=== PATIENT | male | born 1985 | race Caucasian/White ===

== ENCOUNTER 2023-09-02 13:34 | Outpatient (REF) | payer OTHER, SELFPAY ==
[2023-09-02 14:08] LABS: MANUAL DIFF FLAG NO
[2023-09-02 14:17] LABS: Basophils Percent Auto 0.5 % (0-2); Eosinophils Absolute Auto 0.3 X10*3/uL (0.0-0.4); Eosinophils Percent Auto 3.5 % (0-4); Hematocrit 47.8 % (42.0-52.0); Hemoglobin 16.1 g/dl (14.0-18.0); Imm Gran Abs Auto 0.04 X10*3/uL (0.00-0.03); Imm Gran Pct Auto 0.5 % (0.0-0.4); Lymphocytes Absolute Auto 1.8 X10*3/uL (1.2-4.9); Lymphocytes Percent Auto 20.2 % (20-40); Mean Corpuscular HGB Conc 33.7 g/dl (31.0-36.0); Mean Corpuscular Hemoglobin 29.5 pg (27.0-33.0); Mean Corpuscular Volume 87.5 fL (80.0-98.0); Mean Platelet Volume 9.6 fL (9.4-12.4); Monocytes Absolute Auto 0.6 X10*3/uL (0.1-1.2); Monocytes Percent Auto 6.3 % (2-11); Neutrophils Absolute Auto 6.1 x10*3/uL (2.0-8.3); Platelet Count 208 X10*3/uL (160-400); Red Blood Count 5.46 X10*6/uL (4.60-5.80); Red Cell Distribution Width 12.2 % (11.0-16.0); White Blood Count 8.8 X10*3/uL (4.8-10.8)
[2023-09-02 15:00] LABS: Ethanol < 10 mg/dL
[2023-09-02 15:10] LABS: Alanine Aminotransferase 21 U/L (0-40); Albumin Level 4.3 g/dL (3.5-5.0); Alkaline Phosphatase 96 U/L (39-117); Anion Gap 12 (12-20); Aspartate Amino Transferase 24 U/L (5-37); Bilirubin Total 0.7 mg/dL (0.0-1.0); Blood Urea Nitrogen 12 mg/dL (9-16); Calcium 9.2 mg/dL (8.4-10.2); Carbon Dioxide 31 mmol/L (22-29); Chloride 98 mmol/L (96-108); Estimated Glomerular Filt Rate > 60; Free T4 (Free Thyroxine) 0.83 ng/dL (0.71-1.85); Glucose Random 109 mg/dL (60-115); Sodium 137 mmol/L (135-145); Thyroid Stimulating Hormone 1.42 uIU/mL (0.32-4.0); Total Protein 7.8 g/dL (6.5-8.0)
[2023-09-02 15:14] LABS: Estimated Average Glucose 105 mg/dL; Hemoglobin A1c % 5.3 % (<6.0)
[2023-09-02 15:42] LABS: Gamma Glutamyl Transpeptidase 74 U/L (11-51)
[2023-09-02 16:02] LABS: Amphetamine Screen Urine Not Detected (Not Detect); Barbiturates, Urine Not Detected (Not Detect); Benzodiazepines Screen Urine Not Detected (Not Detect); Cannabinoid Screen Urine POSITIVE (Not Detect); Cocaine Screen Urine Not Detected (Not Detect); Fentanyl, urine Not Detected (Not Detect); Opiate Screen Urine Not Detected (Not Detect); Phencyclidine Screen Urine Not Detected (Not Detect)
[2023-09-07 12:52] LABS: Vitamin B1 17 nmol/L (8-30)
== END 2023-09-02 13:35 | disposition home or self-care (01) ==
LOC: HO.LAB 13:34
PROVIDERS: PCP Internal Medicine; Visit Provider Psychiatry & Neurology Psychiatry
DX: F33.1 Major depressive disorder, recurrent, moderate (principal); F10.20 Alcohol dependence, uncomplicated
CPT/HCPCS: 36415; 80053; 80307; 82977; 83036; 84425; 84439; 84443; 85025

== ENCOUNTER → 2023-09-14 10:30 | Outpatient (BNV) | payer OTHER, SELFPAY | PROVIDERS: Visit Provider Psychiatry & Neurology Psychiatry | DX: F10.29 Alcohol dependence with unspecified alcohol-induced disorder (principal); F41.1 Generalized anxiety disorder; F32.A Depression, unspecified; Z86.59 Personal history of other mental and behavioral disorders; F12.10 Cannabis abuse, uncomplicated | CPT/HCPCS: 90792; 99213; 99499 ==

== ENCOUNTER 2023-09-22 10:30 | Outpatient (RCR) | payer OTHER, SELFPAY ==
[2023-08-31 11:50] VITALS: BP 122/81; PULSE 67
[2023-08-31 12:03] VITALS: BMI 25.7
--- NOTE | 2023-08-31 13:23 | PC.NURSE ---
Patient is a 38 year old male who was referred to [facility] by detox/residential program at [place] where patient was admitted from 07/17-08/08/23 for ETOH use disorder. Patient reports he was sober from ETOH for he past 7 years and relapsed for 2 months prior to going into detox then residential treatment. He reports his ex, who is the mother of his son, notified DCF of his drinking and she recently filed for sole custody of their son. He identified the following supports including his therapist, going to AA meetings 4-5 times a week. He reports he is looking for a sponsor. Interested in MAT with the [facility]. He has an appointment with the [facility] on September 07, at 1:45. 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 He is currently taking a MARTIN from work to work on mental health and sobriety. Patient is alert and oriented x4. Calm and cooperative. Presented with depressed mood and anxious affect. Denied SI. He was given a copy of his safety/relapse plan. Patient reports that when he got out of rehab he relapsed for 2 days on 08/24/-08/25/23 drinking a pint a day. Reports some post withdrawal symptoms including mild hand tremor and poor sleep. He stated he is prescribed Propranolol as a result. VSS BP 122/81 P 67. No diaphoresis, No nausea or vomiting. Patient reports in 2014 he was vomiting blood and went to the ER. He had an endoscopy procedure revealed An-Paulson tear of the esophagus. Patient reports no vomiting of blood since procedure. Medications reconciled with patient and patient's pharmacy. Patient reports taking medications as prescribed.
--- NOTE | 2023-09-01 15:03 | HO.PHP ---
Client's case has been opened and reviewed in treatment team.
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
--- NOTE | 2023-09-05 08:45 | HO.PHP ---
[facility] staff admin, Polina, received a call from Ric stating that he won't be in attendance to program. Polina reported he is safe and will be here tomorrow.
--- NOTE | 2023-09-06 15:23 | HO.PHP ---
PHP staff followed up with Ric after the third group to explore if he would like resourses for recovery or detox if needed in the future. Ric shared that he does not feel he is in a place where he needs to utilize those resources and will utilize AA and this program for right now. PHP staff was receptive and stated if he would like additional resources in the future we can provide them. Ric was receptive.
--- NOTE | 2023-09-07 09:27 | PC.NURSE ---
Late entry: On 09/06/23 patient reported to staff that he relapsed on ETOH on Tuesday and Tuesday drinking a pint of ETOH each day. Prior to this he had been sober for the past 12 days. VSS BP 108/78 P 84. Slight hand tremor, no diaphoresis, no nausea, no vomiting, mild anxiety. Patient does not feel he needs detox as he relapsed for 2 days. He is not interested in residential at this time. He wants to continue to work on his sobriety in the program. He also met with his clinician Marycruz regarding relapse. Dr Meade is aware.
--- NOTE | 2023-09-07 10:10 | HO.PHP ---
Ric contacted [facility] staff admin, Polina, to inform her that he won't be in attendance to program today due to having childcare issues for his nephew. Ric reported that he is safe and will be here tomorrow.
--- NOTE | 2023-09-07 10:11 | HO.PHP ---
[facility] staff member contacted Ric to follow up with him, in which a voice message was left. [facility] staff member is awaiting a returned phone call.
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
--- NOTE | 2023-09-15 14:56 | HO.PHP ---
PHP staff member received a phone call from Ric, in which he stated that he received a cold from his daughter and won't be able to make it to program due to having a fever. PHP staff member explored SI, plan or intent. Ric noted that he does not have any SI, plan or intent and is safe. Ric will be in program tomorrow if he is feeling better. PHP staff member was receptive.
--- NOTE | 2023-09-16 08:22 | HO.PHP ---
[facility] staff admin, Polina, received a phone call from Ric stating that he is not feeling well due to having a fever and will not be able to make it to program today. Polina assessed Safety, in which no safety concerns were presented. Ric will be in attendance to program on Tuesday.
--- NOTE | 2023-09-16 23:43 | P.EN_ITS ---
Event Note Date of Service: 09/20/23 Event Note: Naltrexone was unavailable at local pharmacies due to national shortage. Script sent to [facility] in [place] but unfortuantely patient was told they will only fill for their clients. I returned call to patient who was out sick today due to URTI, sounded congested, he agreed to switch over to acamprosate. R/B/SE reviewed again as per our last conversation. Rx efaxed to his pharmacy. Time Spent With Patient Time: Total time managing care of this patient today _15__ minutes.
--- NOTE | 2023-09-20 20:16 | P.PNPSP_ITS ---
Subjective Subjective Date of Service: 09/20/23 Reason For Visit: MDD,AUD Interim History: Patient seen for follow-up, anticipating discharge at the end of program today.? Patient had missed a few days due to URTI. He delayed getting started on acamprosate, didnt machine pecan picker script until the weekend due to being ill. He continues to relapse after abstaining for a couple days at a time. He remains interested in starting Antabuse, however not able to go more than a day or 2 without drinking, and this being his last day, he will need to continue this discussion with his outpatient provider. It would be helpful to continue on acamprosate and we will add on topiramate, perhaps naltrexone will be back in stock soon. If he can manage to cut down on alcohol cravings perhaps Antabuse would be deemed less of a risk (of vomiting w An Paulson tears) given present concerns of relapsing while on antabuse. Patient understands. He also continues on ZOloft 150 mg daily. Patient reports no other acute issues or concerns. Medication compliant, medications well-tolerated. Denies any adverse effects.? Patient reports mood as discouraged due to recent relapses and in regards to his legal situation w [employer]. He is hoping now that he is staying with his parents, his situation with be more stabilizing. He also reports the need to return to work. He is future-oriented, denies any hopelessness or SI. Denies thoughts of harming self or others at this time. Denies any aggressive ideation or HI. Denies any paranoia or AH or VH. Sleep, appetite, energy have improved over course of treatent at [facility]. Medication Compliance: Yes Side effects from medications: No Attending Groups: Yes Review of Systems Acute medical concerns: No Mental Status Exam Mental Status Exam Narrative: Alert, oriented, in no acute distress. Calm, cooperative, engaged. No psychomotor agitation or neurovegetative retardation. Eye contact maintained. Mood anxious, affect constricted. Speech normal. Thought process linear, coherent. Thought content related to stressors, denies hopelessness, denies SI or HI. No paranoia or delusional content elicited. No evidence of psychosis. Insight and judgment fair. Diagnostics Vital Signs (24Hr): BMI result Body Mass Index 25.7 Assessment & Plan Assessment & Plan (1) Alcohol dependence: Qualifiers: Substance use status: unspecified alcohol-induced disorder Qualified Code(s): F10.29 - Alcohol dependence with unspecified alcohol-induced disorder Status: Acute Code(s): F10.20 - Alcohol dependence, uncomplicated (2) Generalized anxiety disorder: Status: Acute Code(s): F41.1 - Generalized anxiety disorder (3) Depressive disorder: Status: Acute Code(s): F32.A - Depression, unspecified (4) Cannabis abuse: Status: Acute Code(s): F12.10 - Cannabis abuse, uncomplicated (5) History of ADHD: Status: Acute Code(s): Z86.59 - Personal history of other mental and behavioral disorders Plan Discharge from [facility] Buspar 7.5 mg BID, plan to increase to 15 mg BID Campral 666 mg TID will start Topemax 25-50 mg qhs, naltrexone not available at this time (due to shortage) encouraged to have continue regular medications will defer further medication management to outpatient provider Refills sent to pharmacy Patient educated on: diagnosis, medication risk/benefits and substance abuse Informed Consent: understands Reason for contiued partial hosp. stay Substantial Risk for: stable for discharge Certification I certify that partial hospital treatment is medically necessary due to the symptoms and problems resulting from the patient's mental illness and the failure to treat the patient at the partial hospital level of care would likely result in the patient requiring inpatient psychiatric care which could not be prevented at a less intensive level of care. Total time managing care of this patient today _30___ minutes. Discharge Plan Discharge Attending provider: Shalini Meade Medications: New acamprosate 333 mg tablet,delayed release (DR/EC) 666 mg PO TID Qty: 90 0RF topiramate 25 mg tablet 25 - 50 mg PO .QHS Qty: 45 0RF buspirone 15 mg tablet See Rx Instructions .ROUTE .COMPLEX Qty: 60 0RF Rx Instructions: take 1/2 tablet daily in AM for 4 days, then increase to 1/2 tablet po BID (in AM and afternoon) for one week, then increase to 1 tablet po BID (in AM and afternoon) Continued naltrexone 50 mg tablet 50 mg PO BEDTIME 30 Days Qty: 30 0RF Hold Instructions: Resume on 09/30/23. Naltrexone unavailable due to national shortage quetiapine 25 mg tablet 25 mg PO BID PRN (Reason: agitation, sleep) Qty: 30 0RF propranolol 40 mg tablet 40 mg PO BID PRN (Reason: post acute withdrawal) Qty: 30 0RF omeprazole 20 mg capsule,delayed release(DR/EC) 20 mg PO DAILY 30 Days Qty: 30 0RF cyclobenzaprine 5 mg tablet 5 mg PO BEDTIME PRN (Reason: muscle spasm) Qty: 10 0RF Changed sertraline 100 mg tablet 150 mg PO DAILY 30 Days Qty: 45 0RF Stand Alone Forms: Patient Portal Discharge page Patient Education: Depression (DC), Alcohol Use Disorder (DC)
--- NOTE | 2023-09-22 16:23 | HO.PHP ---
PHP staff member faxed over a referral to [facility] for Ric for med management. PHP staff member is awaiting a call with the appointment dates and times.
--- NOTE | 2023-09-22 16:27 | HO.PHP ---
[facility] staff member received a phone call from [facility] with Ric's appointments for Med Management, in which the intake is on September 26, 2023 at 11 AM with Regina Dwyer in person at the [facility] in [facility]. Ric's med management appointment appointment is October 10, 2023 at 11 AM with Emer[facility] via Telehealth. [facility] staff member left a VM for Ric asking him to return her call so she is able to provide him with the aftercare appointments. [facility] staff is awaiting a call back.
== END 2023-09-22 23:59 | disposition home or self-care (01) ==
LOC: HO.PHPA 10:30
PROVIDERS: Visit Provider Psychiatry & Neurology Psychiatry
DX: F32.A Depression, unspecified (principal); F41.1 Generalized anxiety disorder; F10.29 Alcohol dependence with unspecified alcohol-induced disorder; F12.10 Cannabis abuse, uncomplicated; Z86.59 Personal history of other mental and behavioral disorders; Z79.899 Other long term (current) drug therapy
CPT/HCPCS: 90791; 90853